=== PATIENT | female | born 1965 | race Hispanic/Latino ===

== ENCOUNTER 2018-11-17 06:48 | Emergency (ER) | payer OTHER ==
[2018-11-17 08:30] LABS: BASOPHILS % (AUTO) 0.5 % (0.0-5.0); EOSINOPHILS % (AUTO) 1.2 % (0.0-8.0); HEMATOCRIT 40.2 % (36-48); LYMPHOCYTES % (AUTO) 32.1 % (21.0-51.0); MEAN CORPUSCULAR HEMOGLOBIN 30.9 pg (27.0-33.0); MEAN CORPUSCULAR HGB CONC 33.8 g/dL (32.0-36.0); MEAN CORPUSCULAR VOLUME 91.3 fL (79-99); MONOCYTES % (AUTO) 6.8 % (3.0-13.0); NEUTROPHILS % (AUTO) 59.4 % (40.0-77.0); NUCLEATED RED BLOOD CELLS 0.1 % (0.0-0.19); PLATELET COUNT (AUTO) 249 K/uL (130-400); RED CELL DISTRIBUTION WIDTH 12.7 % (11.0-15.5); WHITE BLOOD COUNT (AUTO) 4.7 K/uL (4.8-10.8)
[2018-11-17 08:37] LABS: CREATININE 0.8 mg/dL (0.5-1.5); POTASSIUM 3.7 mmol/L (3.5-5.1)
[2018-11-17] MEDS ORDERED: ORPHENADRINE CITRATE 30 MG/ML ML ONE (09:11)
[2018-11-17] MEDS ORDERED: KETOROLAC TROMETHAMINE 30MG/ML ONE (09:11)
[2018-11-17] MEDS ORDERED: DIAZEPAM 2 MG TAB ONE (10:39)
== END 2018-11-17 12:00 | disposition home or self-care (01) ==
LOC: EDH 06:48
DX: M79.662 Pain in left lower leg (principal)
CPT/HCPCS: 36415; 80048; 83735; 85025; 96374; 96375; 99283; J1885; J2360

== ENCOUNTER 2019-02-25 03:37 | Emergency (ER) | payer OTHER ==
[2019-02-25] MEDS ORDERED: ORPHENADRINE CITRATE 30 MG/ML ML ONE (04:11)
[2019-02-25] MEDS ORDERED: DIAZEPAM 5 MG TABLET ONE (04:12)
[2019-02-25] MEDS ORDERED: KETOROLAC TROMETHAMINE 60 MG/2 ML VIAL ONE (04:12)
== END 2019-02-25 06:14 | disposition home or self-care (01) ==
LOC: EDH 03:37
DX: M54.42 Lumbago with sciatica, left side (principal)
CPT/HCPCS: 96372 ×2; 99284; J1885; J2360

== ENCOUNTER 2020-06-22 23:55 | Emergency (ER) | payer OTHER ==
[2020-06-23] MEDS ORDERED: ONDANSETRON 4 MG TABLET ONE (00:27)
[2020-06-23] MEDS ORDERED: KETOROLAC TROMETHAMINE 60 MG/2 ML VIAL ONE (00:28)
[2020-06-23] MEDS ORDERED: HYDROCODONE/ACETAMINOPHEN 5/325 MG TAB ONE (00:28)
[2020-06-23] MEDS ORDERED: CYCLOBENZAPRINE HCL 10 MG TABLET ONE (01:09)
[2020-06-23] MEDS ORDERED: PREDNISONE 20 MG TABLET ONE (01:09)
== END 2020-06-23 03:27 | disposition home or self-care (01) ==
LOC: EDH 23:55
DX: M54.32 Sciatica, left side (principal); Z98.890 Other specified postprocedural states
CPT/HCPCS: 96372; 99284; J1885; Q0162

== ENCOUNTER 2020-10-02 12:08 | Emergency (ER) | payer OTHER, SELFPAY ==
[2020-10-02] MEDS ORDERED: ALBUTEROL INHALER 90MCG/INH IH ONE (12:20)
[2020-10-02] MEDS ORDERED: ACETAMINOPHEN WITH CODEINE 1 TAB TAB ONE (12:20)
[2020-10-02 12:51] LABS: BASOPHILS % (AUTO) 0.2 % (0.0-5.0); EOSINOPHILS % (AUTO) 0.2 % (0.0-8.0); HEMATOCRIT 41.8 % (36-48); LYMPHOCYTES % (AUTO) 31.1 % (21.0-51.0); MEAN CORPUSCULAR HEMOGLOBIN 30.8 pg (27.0-33.0); MEAN CORPUSCULAR VOLUME 90.7 fL (79-99); MONOCYTES % (AUTO) 7.2 % (3.0-13.0); NEUTROPHILS % (AUTO) 61.1 % (40.0-77.0); PLATELET COUNT (AUTO) 242 K/uL (130-400); RED BLOOD CELL COUNT(AUTO) 4.61 MIL/uL (4.00-5.50); RED CELL DISTRIBUTION WIDTH 11.7 % (11.0-15.5)
[2020-10-02 13:01] LABS: CREATININE 0.7 mg/dL (0.5-1.5); POTASSIUM 4.1 mmol/L (3.5-5.1)
[2020-10-02 13:06] LABS: ALBUMIN 3.8 g/dL (3.5-5.0); BILIRUBIN,TOTAL 0.3 mg/dL (0.2-1.0)
[2020-10-02] MEDS ORDERED: CEFTRIAXONE 1G VIAL ONE (13:40)
[2020-10-02] MEDS ORDERED: LIDOCAINE HCL MPF 1% 5ML VIAL ONE (13:40)
[2020-10-02] MEDS ORDERED: AZITHROMYCIN 250 MG TABLET PO ONE (13:41)
== END 2020-10-02 14:01 | disposition home or self-care (01) ==
LOC: EDH 12:08
DX: U07.1 COVID-19 (principal)
CPT/HCPCS: 36415; 71045; 80053; 85025; 87426; 96372; 99284; J0696; J3490; J0500

== ENCOUNTER 2020-10-02 15:45 | Emergency (ER) | payer OTHER ==
[2020-10-02] MEDS ORDERED: MAG HYDROX/AL HYDROX/SIMETH ES 30 ML SUSP UDCUP ONE (15:57)
[2020-10-02] MEDS ORDERED: LIDOCAINE HCL 2% VISCOUS 15 ML UDCUP ONE (15:57)
[2020-10-02] MEDS ORDERED: FAMOTIDINE 20MG TAB 20 MG TAB ONE (15:58)
[2020-10-02] MEDS ORDERED: DICYCLOMINE HCL 10 MG/ML 2ML AMP IM ONE (15:58)
== END 2020-10-02 16:08 | disposition home or self-care (01) ==
LOC: EDH 15:45
DX: U07.1 COVID-19 (principal); K29.00 Acute gastritis without bleeding
CPT/HCPCS: 96372; 99283; J0500